=== PATIENT | male | born 1940 | race Caucasian/White ===

== ENCOUNTER → 2018-06-17 10:59 | Outpatient (CLI) | payer MEDICARE, OTHER, SELFPAY ==
[2018-06-17 11:52] LABS: Alanine Aminotransferase 37 IU/L (21-72); Albumin 4.1 g/dL (3.5-5.0); Albumin Globulin Ratio 1.5 (1.0-2.8); Alkaline Phosphatase 81 U/L (38-126); Aspartate Aminotransferase 36 IU/L (17-59); Bilirubin Total 0.8 mg/dL (0.2-1.3); Blood Urea Nitrogen 27 mg/dL (9-20); Calcium 9.3 mg/dL (8.4-10.2); Carbon Dioxide 29 mmol/L (22-32); Chloride 103 mmol/L (98-107); Cholesterol 161 mg/dL (140-199); Estimated Glomerular Filt Rate > 60.0 mL/min (>60); Globulin 2.7 g/dL (1.7-4.1); Glucose 104 mg/dL (80-110); HDL Cholesterol 32 mg/dL (40-60); HEMOLYSIS < 15 (0-50); LDL Cholesterol Calculated 102 mg/dL (<100); Potassium 4.8 mmol/L (3.4-5.1); Sodium 140 mmol/L (137-145); Total Protein 6.8 g/dL (6.3-8.2); Triglycerides 137 mg/dL (35-150)
== END ==
PROVIDERS: PCP Student in an Organized Health Care Education/Training Program; Visit Provider Student in an Organized Health Care Education/Training Program
DX: I10 Essential (primary) hypertension (principal); Z13.220 Encounter for screening for lipoid disorders
CPT/HCPCS: 36415; 80053; 80061

== ENCOUNTER → 2025-03-23 08:32 | Outpatient (CLI) | payer MEDICARE, SELFPAY | LOC: ECHO 08:34 | PROVIDERS: PCP Family Medicine; Referring Provider Family Medicine; Visit Provider Internal Medicine Cardiovascular Disease | DX: I08.3 Combined rheumatic disorders of mitral, aortic and tricuspid valves (principal); I48.19 Other persistent atrial fibrillation; I77.810 Thoracic aortic ectasia; I77.89 Other specified disorders of arteries and arterioles | CPT/HCPCS: 93306 ==

== ENCOUNTER 2025-04-05 10:53 | Emergency (ER) | payer MEDICARE, SELFPAY ==
[2025-04-05] VITALS (46 sets, daily range): BP systolic 124–252; BP diastolic 58–131; PULSE 51–96; RESP 10–35; TEMP 36.6; O2SAT 92–98; BMI 28.8
[2025-04-05] MEDS: ONDANSETRON 4 MG ODT SL (11:54)
[2025-04-05] MEDS: TRANEXAMIC ACID 1,000 MG VIAL 1000 MG TOP (12:03)
--- NOTE | 2025-04-05 12:21 | PC.NURSE ---
Provider Hugo Braden made aware of patient's blood pressure. No new orders at this time.
--- NOTE | 2025-04-05 12:37 | EKG_ITS ---
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
--- NOTE | 2025-04-05 12:44 | ED_ITS ---
HPI - Epistaxis <Hugo Braden PA-C - Last Filed: 04/05/25 12:49> General Chief complaint: Nasal Problem Stated complaint: Nose bleed, this morning , on blood thinners Time Seen by Provider: 04/05/25 11:18 Source: patient Mode of arrival: Ambulatory History of Present Illness HPI Narrative: 84-year-old male with past medical history hypertension, hyperlipidemia, atrial fibrillation, on Xarelto presents to the ED with 1 day of epistaxis from the right nare. Patient has frequent nosebleeds during the rudolph, however they spontaneously stop quickly. The nosebleed started this morning spontaneously. Patient denies fever, chills, chest pain, shortness of breath, nausea, vomiting, abdominal pain, lightheadedness, dizziness, syncope. Patient used 2 sprays of Afrin this morning without relief. Patient is accompanied by his daughter. Patient is followed by Dr. Clemente from cardiology for the AFib. Patient had an echo done on 03/23/2025 which shows a normal left ventricular size with mildly reduced systolic function of 45-50%. Mildly enlarged right ventricle with mildly reduced function. The left atrium is severely dilated. There is [id number] mitral regurgitation. The ascending aorta is moderately enlarged at 4.8 cm. No prior echo available for comparison. Related Data Previous Rx's ?Medication ?Instructions ?Recorded rivaroxaban 20 mg tablet 20 mg PO QPM #90 tabs losartan 25 mg tablet 25 mg PO DAILY #30 tabs 03/19 01/10 Allergies Allergy/AdvReac Type Severity Reaction Status Date / Time No Known Drug Allergies Allergy Verified 10/19/24 07:51 Review of Systems <Nagi Hanley MD - Last Filed: 04/05/25 16:05> Review of Systems ROS Unobtainable: All systems reviewed & are unremarkable except as noted in HPI and below Patient History <Hugo Braden PA-C - Last Filed: 04/05/25 12:49> Medical History (Updated 04/05/25 @ 16:01 by Nagi Hanley MD) Atrial fibrillation Hyperlipidemia Hypertension Family History (Updated 11/21/24 @ 18:22 by Libertad Jones) Father History of heart disease Mother Hyperlipidemia Brother Cancer Social History Smoking Status: Never smoker Smoking Status: Never smoker Exam <Hugo Braden PA-C - Last Filed: 04/05/25 12:49> Initial Vital Signs Initial Vital Signs: Vital Signs Pulse Rate 67 04/05/25 10:57 Pulse Oximetry 98 04/05/25 10:57 <Nagi Hanley MD - Last Filed: 04/05/25 16:05> Initial Vital Signs Initial Vital Signs: Vital Signs Pulse Rate 67 04/05/25 10:57 Pulse Oximetry 98 04/05/25 10:57 Const General: cooperative, healthy appearing, comfortable, well developed and well hydrated Nutritional Appearance: average body habitus HENMT HENMT Other: Bleeding from right nares and slight dripping down the oropharynx Eyes General: Yes appearance normal, both eyes and all related structures Eyelids: eyelids normal Sclera: sclerae normal Pupils: PERRL Neck Neck: normal visual inspection Resp Effort & Inspection: normal respiratory effort and able to speak in complete sentences Cardio Other: Patient with irregularly irregular heartbeat, very mild pitting edema to bilateral lower extremities GI Inspection: normal to inspection and non-distended General: bimanual renal exam normal bilaterally Back/Spine/Pelvis Back: normal to inspection Skin General: no rashes or lesions noted Neuro General: patient alert, patient awake, patient oriented x3, gait normal, moves all extremities, normal light touch, pain and propioception, no focal motor deficits and CN's II-XI intact bilaterally Cognition: normal cognition Speech: speech normal Gait: normal gait Motor: muscle tone normal throughout Sensory Exam: no sensory deficits noted Extrem General: normal to inspection Psych Appearance: grossly normal Mental Status: mental status grossly normal Speech and Movement: speech and movement normal Mood: congruent mood Attitude: cooperative Thought Process: normal Thought Content: normal Judgment: judgment good Procedures <Nagi Hanley MD - Last Filed: 04/05/25 16:05> Misc Procedure Additional Comments: 7.5 rhino rocket coated w/ TXA inserted into the right nare with successful cessation of blood flow. Course <Hugo Braden PA-C - Last Filed: 04/05/25 12:49> Orders Ordered: ED Orders 04/05/25 12:41 CBC Auto Diff [Complete Blood Count AUTO DIFF] Stat CMP [Comprehensive Metabolic Panel] Stat PT [Prothrombin Time INR] Stat PTT [PTT Partial Thromboplastin [place]] Stat 04/05/25 12:56 EKG-12 Lead Stat Discontinued Medications Hydralazine HCl (Hydralazine 20 Mg/Ml Vial) 10 mg IV NOW ONE Stop: 04/05/25 13:20 Last Admin: 04/05/25 13:23 Dose: 10 mg Documented By: GISSEL Losartan Potassium (Losartan 25 Mg Tablet) 25 mg PO NOW ONE Stop: 04/05/25 14:53 Last Admin: 04/05/25 14:57 Dose: Not Given Documented By: PRERNA Morphine Sulfate (Morphine 4 Mg/Ml Inj) 4 mg IV NOW ONE Stop: 04/05/25 12:35 Last Admin: 04/05/25 12:45 Dose: 4 mg Documented By: GISSEL Ondansetron HCl (Ondansetron 4 Mg Odt) 4 mg SL NOW ONE Stop: 04/05/25 11:47 Last Admin: 04/05/25 11:54 Dose: 4 mg Documented By: GISSEL Tranexamic Acid (Tranexamic Acid 1,000 Mg Vial) 1,000 mg TOP NOW ONE Stop: 04/05/25 11:43 Last Admin: 04/05/25 12:03 Dose: 1,000 mg Documented By: GISSEL Vital Signs Vital signs: Vital Signs - 8 hr 04/05/25 10:57 04/05/25 11:00 04/05/25 11:00 Temperature 97.8 F Pulse Rate 67 60 68 Respiratory Rate 16 Blood Pressure 193/96 H Pulse Oximetry 98 98 98 Oxygen Delivery Method Room Air 04/05/25 11:03 04/05/25 11:03 04/05/25 11:23 Temperature Pulse Rate 68 69 Respiratory Rate Blood Pressure 193/96 H Pulse Oximetry 97 95 Oxygen Delivery Method Room Air 04/05/25 11:30 04/05/25 11:31 04/05/25 11:31 Temperature Pulse Rate 77 71 Respiratory Rate Blood Pressure 183/86 H Pulse Oximetry 97 96 Oxygen Delivery Method Room Air 04/05/25 11:46 04/05/25 11:46 04/05/25 12:00 Temperature Pulse Rate 66 58 L Respiratory Rate Blood Pressure 195/99 H Pulse Oximetry 97 98 Oxygen Delivery Method 04/05/25 12:01 04/05/25 12:01 04/05/25 12:07 Temperature Pulse Rate 67 69 Respiratory Rate Blood Pressure 179/131 H Pulse Oximetry 95 97 Oxygen Delivery Method 04/05/25 12:07 04/05/25 12:16 04/05/25 12:16 Temperature Pulse Rate 66 Respiratory Rate Blood Pressure 178/88 H 247/114 H Pulse Oximetry 98 Oxygen Delivery Method 04/05/25 12:24 04/05/25 12:24 04/05/25 12:30 Temperature Pulse Rate 90 51 L Respiratory Rate Blood Pressure 252/129 H Pulse Oximetry 96 98 Oxygen Delivery Method 04/05/25 12:30 04/05/25 12:46 04/05/25 12:46 Temperature Pulse Rate 88 Respiratory Rate 22 Blood Pressure 235/123 H 233/105 H Pulse Oximetry 98 Oxygen Delivery Method 04/05/25 12:55 04/05/25 12:55 04/05/25 12:57 Temperature Pulse Rate 88 81 Respiratory Rate 29 H 19 Blood Pressure 237/112 H Pulse Oximetry 97 95 Oxygen Delivery Method 04/05/25 12:57 04/05/25 12:59 04/05/25 12:59 Temperature Pulse Rate 86 Respiratory Rate 16 Blood Pressure 234/107 H 243/110 H Pulse Oximetry 94 Oxygen Delivery Method 04/05/25 13:00 04/05/25 13:01 04/05/25 13:01 Temperature Pulse Rate 84 84 Respiratory Rate 24 22 Blood Pressure 228/100 H Pulse Oximetry 96 96 Oxygen Delivery Method 04/05/25 13:05 04/05/25 13:05 04/05/25 13:10 Temperature Pulse Rate 80 Respiratory Rate 22 Blood Pressure 225/105 H 225/122 H Pulse Oximetry 96 Oxygen Delivery Method 04/05/25 13:10 04/05/25 13:15 04/05/25 13:15 Temperature Pulse Rate 91 H 83 Respiratory Rate 22 25 H Blood Pressure 233/122 H Pulse Oximetry 96 97 Oxygen Delivery Method 04/05/25 13:20 04/05/25 13:20 04/05/25 13:23 Temperature Pulse Rate 84 76 Respiratory Rate 27 H Blood Pressure 235/107 H 235/107 H Pulse Oximetry 96 Oxygen Delivery Method 04/05/25 13:25 04/05/25 13:25 04/05/25 13:30 Temperature Pulse Rate 83 85 Respiratory Rate 10 L 24 Blood Pressure 211/100 H Pulse Oximetry 92 95 Oxygen Delivery Method 04/05/25 13:31 04/05/25 13:31 04/05/25 13:35 Temperature Pulse Rate 82 Respiratory Rate 35 H Blood Pressure 199/110 H 197/86 H Pulse Oximetry 96 Oxygen Delivery Method 04/05/25 13:35 04/05/25 13:40 04/05/25 13:40 Temperature Pulse Rate 83 78 Respiratory Rate 13 Blood Pressure 179/79 H Pulse Oximetry 94 95 Oxygen Delivery Method 04/05/25 13:45 04/05/25 13:45 04/05/25 13:50 Temperature Pulse Rate 79 79 Respiratory Rate Blood Pressure 168/73 H Pulse Oximetry 94 92 Oxygen Delivery Method 04/05/25 13:50 04/05/25 13:51 04/05/25 13:55 Temperature Pulse Rate 78 75 Respiratory Rate Blood Pressure 181/77 H 181/77 H Pulse Oximetry 95 Oxygen Delivery Method 04/05/25 13:55 04/05/25 13:59 04/05/25 13:59 Temperature Pulse Rate 81 Respiratory Rate Blood Pressure 124/58 L 164/74 H Pulse Oximetry 94 Oxygen Delivery Method 04/05/25 14:00 04/05/25 14:00 04/05/25 14:05 Temperature Pulse Rate 79 71 Respiratory Rate Blood Pressure 168/76 H Pulse Oximetry 94 94 Oxygen Delivery Method 04/05/25 14:05 04/05/25 14:10 04/05/25 14:10 Temperature Pulse Rate 74 Respiratory Rate Blood Pressure 154/67 H 175/75 H Pulse Oximetry 93 Oxygen Delivery Method 04/05/25 14:15 04/05/25 14:15 04/05/25 14:20 Temperature Pulse Rate 79 73 Respiratory Rate Blood Pressure 166/87 H Pulse Oximetry 94 95 Oxygen Delivery Method 04/05/25 14:20 04/05/25 14:25 04/05/25 14:25 Temperature Pulse Rate 77 Respiratory Rate Blood Pressure 158/71 H 150/70 H Pulse Oximetry 95 Oxygen Delivery Method 04/05/25 14:30 04/05/25 14:30 04/05/25 14:35 Temperature Pulse Rate 75 Respiratory Rate Blood Pressure 149/68 H 162/74 H Pulse Oximetry 95 Oxygen Delivery Method 04/05/25 14:35 04/05/25 14:40 04/05/25 14:40 Temperature Pulse Rate 75 69 Respiratory Rate Blood Pressure 171/73 H Pulse Oximetry 93 93 Oxygen Delivery Method 04/05/25 14:45 04/05/25 14:45 04/05/25 14:50 Temperature Pulse Rate 79 Respiratory Rate Blood Pressure 177/77 H 158/77 H Pulse Oximetry 95 Oxygen Delivery Method 04/05/25 14:50 Temperature Pulse Rate 70 Respiratory Rate 16 Blood Pressure Pulse Oximetry 94 Oxygen Delivery Method Room Air <Nagi Hanley MD - Last Filed: 04/05/25 16:05> Course Course Narrative: Pt presents with nosebleed. Has known history hypertension but has been resistant to taking medications. Spoke to avionics supervisor Dr. Clemente who confirmed that his EKG is consistent with AFib with PVCs and ventricular bigeminy. No acute concern for emergent cardiac condition at this time. Recommends losartan 25. Does not recommend Lasix at this time given patient has an appropriate EF as noted above. Patient has had several epistaxis episodes on Xarelto however this one is slightly more prolonged. No significant blood loss noted on CBC Chest x-ray for consideration of pneumonia, pneumothorax, or congestive heart failure. However, deferred due to reassuring history and physical EKG, troponin in consideration of arrhythmia, Acute Coronary Syndrome, Acute Myocardial Infarction. However, deferred due to reassuring history and physical Check labs due to consideration of anemia, electrolyte abnormalities, including hypokalemia, hyperkalemia, hyponatremia, hypernatremia, hyperglycemia, hypoglycemia. No CT chest indicated as I considered but do not clinically suspect aortic dissection/pulmonary embolism. Orders Ordered: ED Orders 04/05/25 12:41 CBC Auto Diff [Complete Blood Count AUTO DIFF] Stat CMP [Comprehensive Metabolic Panel] Stat PT [Prothrombin Time INR] Stat PTT [PTT Partial Thromboplastin [place]] Stat 04/05/25 12:56 EKG-12 Lead Stat Discontinued Medications Hydralazine HCl (Hydralazine 20 Mg/Ml Vial) 10 mg IV NOW ONE Stop: 04/05/25 13:20 Last Admin: 04/05/25 13:23 Dose: 10 mg Documented By: BZ Losartan Potassium (Losartan 25 Mg Tablet) 25 mg PO NOW ONE Stop: 04/05/25 14:53 Last Admin: 04/05/25 14:57 Dose: Not Given Documented By: SB Morphine Sulfate (Morphine 4 Mg/Ml Inj) 4 mg IV NOW ONE Stop: 04/05/25 12:35 Last Admin: 04/05/25 12:45 Dose: 4 mg Documented By: BZ Ondansetron HCl (Ondansetron 4 Mg Odt) 4 mg SL NOW ONE Stop: 04/05/25 11:47 Last Admin: 04/05/25 11:54 Dose: 4 mg Documented By: GISSEL Tranexamic Acid (Tranexamic Acid 1,000 Mg Vial) 1,000 mg TOP NOW ONE Stop: 04/05/25 11:43 Last Admin: 04/05/25 12:03 Dose: 1,000 mg Documented By: GISSEL Vital Signs Vital signs: Vital Signs - 8 hr 04/05/25 10:57 04/05/25 11:00 04/05/25 11:00 Temperature 97.8 F Pulse Rate 67 60 68 Respiratory Rate 16 Blood Pressure 193/96 H Pulse Oximetry 98 98 98 Oxygen Delivery Method Room Air 04/05/25 11:03 04/05/25 11:03 04/05/25 11:23 Temperature Pulse Rate 68 69 Respiratory Rate Blood Pressure 193/96 H Pulse Oximetry 97 95 Oxygen Delivery Method Room Air 04/05/25 11:30 04/05/25 11:31 04/05/25 11:31 Temperature Pulse Rate 77 71 Respiratory Rate Blood Pressure 183/86 H Pulse Oximetry 97 96 Oxygen Delivery Method Room Air 04/05/25 11:46 04/05/25 11:46 04/05/25 12:00 Temperature Pulse Rate 66 58 L Respiratory Rate Blood Pressure 195/99 H Pulse Oximetry 97 98 Oxygen Delivery Method 04/05/25 12:01 04/05/25 12:01 04/05/25 12:07 Temperature Pulse Rate 67 69 Respiratory Rate Blood Pressure 179/131 H Pulse Oximetry 95 97 Oxygen Delivery Method 04/05/25 12:07 04/05/25 12:16 04/05/25 12:16 Temperature Pulse Rate 66 Respiratory Rate Blood Pressure 178/88 H 247/114 H Pulse Oximetry 98 Oxygen Delivery Method 04/05/25 12:24 04/05/25 12:24 04/05/25 12:30 Temperature Pulse Rate 90 51 L Respiratory Rate Blood Pressure 252/129 H Pulse Oximetry 96 98 Oxygen Delivery Method 04/05/25 12:30 04/05/25 12:46 04/05/25 12:46 Temperature Pulse Rate 88 Respiratory Rate 22 Blood Pressure 235/123 H 233/105 H Pulse Oximetry 98 Oxygen Delivery Method 04/05/25 12:55 04/05/25 12:55 04/05/25 12:57 Temperature Pulse Rate 88 81 Respiratory Rate 29 H 19 Blood Pressure 237/112 H Pulse Oximetry 97 95 Oxygen Delivery Method 04/05/25 12:57 04/05/25 12:59 04/05/25 12:59 Temperature Pulse Rate 86 Respiratory Rate 16 Blood Pressure 234/107 H 243/110 H Pulse Oximetry 94 Oxygen Delivery Method 04/05/25 13:00 04/05/25 13:01 04/05/25 13:01 Temperature Pulse Rate 84 84 Respiratory Rate 24 22 Blood Pressure 228/100 H Pulse Oximetry 96 96 Oxygen Delivery Method 04/05/25 13:05 04/05/25 13:05 04/05/25 13:10 Temperature Pulse Rate 80 Respiratory Rate 22 Blood Pressure 225/105 H 225/122 H Pulse Oximetry 96 Oxygen Delivery Method 04/05/25 13:10 04/05/25 13:15 04/05/25 13:15 Temperature Pulse Rate 91 H 83 Respiratory Rate 22 25 H Blood Pressure 233/122 H Pulse Oximetry 96 97 Oxygen Delivery Method 04/05/25 13:20 04/05/25 13:20 04/05/25 13:23 Temperature Pulse Rate 84 76 Respiratory Rate 27 H Blood Pressure 235/107 H 235/107 H Pulse Oximetry 96 Oxygen Delivery Method 04/05/25 13:25 04/05/25 13:25 04/05/25 13:30 Temperature Pulse Rate 83 85 Respiratory Rate 10 L 24 Blood Pressure 211/100 H Pulse Oximetry 92 95 Oxygen Delivery Method 04/05/25 13:31 04/05/25 13:31 04/05/25 13:35 Temperature Pulse Rate 82 Respiratory Rate 35 H Blood Pressure 199/110 H 197/86 H Pulse Oximetry 96 Oxygen Delivery Method 04/05/25 13:35 04/05/25 13:40 04/05/25 13:40 Temperature Pulse Rate 83 78 Respiratory Rate 13 Blood Pressure 179/79 H Pulse Oximetry 94 95 Oxygen Delivery Method 04/05/25 13:45 04/05/25 13:45 04/05/25 13:50 Temperature Pulse Rate 79 79 Respiratory Rate Blood Pressure 168/73 H Pulse Oximetry 94 92 Oxygen Delivery Method 04/05/25 13:50 04/05/25 13:51 04/05/25 13:55 Temperature Pulse Rate 78 75 Respiratory Rate Blood Pressure 181/77 H 181/77 H Pulse Oximetry 95 Oxygen Delivery Method 04/05/25 13:55 04/05/25 13:59 04/05/25 13:59 Temperature Pulse Rate 81 Respiratory Rate Blood Pressure 124/58 L 164/74 H Pulse Oximetry 94 Oxygen Delivery Method 04/05/25 14:00 04/05/25 14:00 04/05/25 14:05 Temperature Pulse Rate 79 71 Respiratory Rate Blood Pressure 168/76 H Pulse Oximetry 94 94 Oxygen Delivery Method 04/05/25 14:05 04/05/25 14:10 04/05/25 14:10 Temperature Pulse Rate 74 Respiratory Rate Blood Pressure 154/67 H 175/75 H Pulse Oximetry 93 Oxygen Delivery Method 04/05/25 14:15 04/05/25 14:15 04/05/25 14:20 Temperature Pulse Rate 79 73 Respiratory Rate Blood Pressure 166/87 H Pulse Oximetry 94 95 Oxygen Delivery Method 04/05/25 14:20 04/05/25 14:25 04/05/25 14:25 Temperature Pulse Rate 77 Respiratory Rate Blood Pressure 158/71 H 150/70 H Pulse Oximetry 95 Oxygen Delivery Method 04/05/25 14:30 04/05/25 14:30 04/05/25 14:35 Temperature Pulse Rate 75 Respiratory Rate Blood Pressure 149/68 H 162/74 H Pulse Oximetry 95 Oxygen Delivery Method 04/05/25 14:35 04/05/25 14:40 04/05/25 14:40 Temperature Pulse Rate 75 69 Respiratory Rate Blood Pressure 171/73 H Pulse Oximetry 93 93 Oxygen Delivery Method 04/05/25 14:45 04/05/25 14:45 04/05/25 14:50 Temperature Pulse Rate 79 Respiratory Rate Blood Pressure 177/77 H 158/77 H Pulse Oximetry 95 Oxygen Delivery Method 04/05/25 14:50 Temperature Pulse Rate 70 Respiratory Rate 16 Blood Pressure Pulse Oximetry 94 Oxygen Delivery Method Room Air MDM - Epistaxis <Hugo Braden PA-C - Last Filed: 04/05/25 12:49> Lab Data 04/05/25 12:41 04/05/25 12:41 Labs: Lab Results 04/05/25 04/05/25 04/05/25 Range/Units 12:41 12:41 12:41 WBC 8.5 (4.5-11.0) X10^3/uL RBC 5.15 (4.5-5.9) X10^6/uL Hgb 16.4 (13.5-17.5) g/dL Hct 47.3 (41-53) % MCV 91.8 (80-100) fL MCH 31.9 (26-34) PG MCHC 34.7 (30-36) % RDW 13.9 (11.6-14.8) % Plt Count 341 (150-400) X10^3/uL Neut % (Auto) 65.6 (50-75) % Lymph % (Auto) 23.2 L (25-40) % [place] % (Auto) 9.7 (3-14) % Eos % (Auto) 1.2 L (2-4) % Baso % (Auto) 0.3 (0-2) % Neut # (Auto) 5600 (6207-6496) /uL Lymph # (Auto) 2000 (2796-0069) /uL [place] # (Auto) 800 (0-900) /uL Eos # (Auto) 100 (0-450) /uL Baso # (Auto) 0 (0-100) /uL PT 17.8 H Cancelled (9.4-12.5) SECONDS INR 1.6 H Cancelled (0.9-1.3) APTT 38 H (25.1-36.5) SECONDS Sodium 138 (137-145) mmol/L Potassium 4.4 (3.4-5.1) mmol/L Chloride 106 (98-107) mmol/L Carbon Dioxide 23 (22-32) mmol/L BUN 30 H (9-20) mg/dL Creatinine 1.27 H (0.66-1.25) mg/dL Estimated GFR 55 L (>60) mL/min BUN/Creatinine Ratio 23.6 H (6-22) Glucose 125 H (70-99) mg/dL Calcium 9.3 (8.4-10.2) mg/dL Total Bilirubin 0.9 (0.2-1.3) mg/dL AST 32 (17-59) IU/L ALT 19 (<50) IU/L Alkaline Phosphatase 113 (38-126) U/L Total Protein 7.8 (6.3-8.2) g/dL Albumin 4.3 (3.5-5.0) g/dL Globulin 3.5 (1.7-4.1) g/dL Albumin/Globulin Ratio 1.2 (1.0-2.8) MDM Narrative Medical decision making narrative: 84-year-old male with past medical history hypertension, hyperlipidemia, atrial fibrillation, on Xarelto presents to the ED with 1 day of epistaxis from the right nare. <Nagi Hanley MD - Last Filed: 04/05/25 16:05> Lab Data Labs: Lab Results 04/05/25 04/05/25 04/05/25 Range/Units 12:41 12:41 12:41 WBC 8.5 (4.5-11.0) X10^3/uL RBC 5.15 (4.5-5.9) X10^6/uL Hgb 16.4 (13.5-17.5) g/dL Hct 47.3 (41-53) % MCV 91.8 (80-100) fL MCH 31.9 (26-34) PG MCHC 34.7 (30-36) % RDW 13.9 (11.6-14.8) % Plt Count 341 (150-400) X10^3/uL Neut % (Auto) 65.6 (50-75) % Lymph % (Auto) 23.2 L (25-40) % [place] % (Auto) 9.7 (3-14) % Eos % (Auto) 1.2 L (2-4) % Baso % (Auto) 0.3 (0-2) % Neut # (Auto) 5600 (2816-7541) /uL Lymph # (Auto) 2000 (3253-2618) /uL [place] # (Auto) 800 (0-900) /uL Eos # (Auto) 100 (0-450) /uL Baso # (Auto) 0 (0-100) /uL PT 17.8 H Cancelled (9.4-12.5) SECONDS INR 1.6 H Cancelled (0.9-1.3) APTT 38 H (25.1-36.5) SECONDS Sodium 138 (137-145) mmol/L Potassium 4.4 (3.4-5.1) mmol/L Chloride 106 (98-107) mmol/L Carbon Dioxide 23 (22-32) mmol/L BUN 30 H (9-20) mg/dL Creatinine 1.27 H (0.66-1.25) mg/dL Estimated GFR 55 L (>60) mL/min BUN/Creatinine Ratio 23.6 H (6-22) Glucose 125 H (70-99) mg/dL Calcium 9.3 (8.4-10.2) mg/dL Total Bilirubin 0.9 (0.2-1.3) mg/dL AST 32 (17-59) IU/L ALT 19 (<50) IU/L Alkaline Phosphatase 113 (38-126) U/L Total Protein 7.8 (6.3-8.2) g/dL Albumin 4.3 (3.5-5.0) g/dL Globulin 3.5 (1.7-4.1) g/dL Albumin/Globulin Ratio 1.2 (1.0-2.8) ECG Data Interpretation: Patient with AFib at 99, frequent ectopy noted with PVCs and intermittent ventricular bigeminy. No ST segment elevations noted. Discharge Plan Departure Patient Disposition: Home Clinical Impression: Hypertensive urgency, Epistaxis Instructions: DI for Nosebleed Activity Restrictions/Additional Instructions: Return to the emergency department for any pus drainage, fever, redness at the site, or any other concern. Please have a qualified clinician remove the rhino rocket in 48 hrs. Please return to ED if you have chest pain, shortness of breath, dizziness, nausea, passing out, or any other concern. Prescriptions: New losartan 25 mg tablet 25 mg PO DAILY Qty: 30 0RF Rx Instructions: While taking this medication please record your blood pressure each day in the morning when you are relaxed after you wake up to show to your avionics supervisor that your next follow-up appointment. No Action rivaroxaban 20 mg tablet 20 mg PO QPM Qty: 90 2RF Referrals: Tom Edwards MD [Primary Care Provider, Family Practice] Stand Alone Forms: Patient Portal/API
[2025-04-05] MEDS: MORPHINE 4 MG/ML INJ IV (12:45)
[2025-04-05 12:50] LABS: Add Manual Diff / Slide Review NO; Hematocrit 47.3 % (41-53); Hemoglobin 16.4 g/dL (13.5-17.5); Lymphocytes Absolute Auto 2000 /uL (1100-4500); Mean Corpuscular HGB Conc 34.7 % (30-36); Mean Corpuscular Hemoglobin 31.9 PG (26-34); Mean Corpuscular Volume 91.8 fL (80-100); Platelet Count 341 X10^3/uL (150-400)
--- NOTE | 2025-04-05 12:55 | PC.NURSE ---
hospice care consultant Ana checks on patient. She reports noticing a low heart rate and place patient on cardiac monitoring. Patient then shows an unspecified arrhythmia. Provider Hugo Braden and provider Leslie made aware. Stat EKG performed. Patient alert, oriented and reports some discomfort with rhino rocket. Call light within reach. Encouraged to use for needs.
--- NOTE | 2025-04-05 12:56 | EKG_ITS ---
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
[2025-04-05 12:59] LABS: INR 1.6 (0.9-1.3); Prothrombin Time 17.8 SECONDS (9.4-12.5)
[2025-04-05 13:01] LABS: PTT Partial Thromboplastin Tim 38 SECONDS (25.1-36.5)
[2025-04-05 13:03] LABS: Alanine Aminotransferase 19 IU/L (<50); Albumin 4.3 g/dL (3.5-5.0); Albumin Globulin Ratio 1.2 (1.0-2.8); Alkaline Phosphatase 113 U/L (38-126); Blood Urea Nitrogen 30 mg/dL (9-20); Calcium 9.3 mg/dL (8.4-10.2); Carbon Dioxide 23 mmol/L (22-32); Chloride 106 mmol/L (98-107); Estimated Glomerular Filt Rate 55 mL/min (>60); Globulin 3.5 g/dL (1.7-4.1); Glucose 125 mg/dL (70-99); HEMOLYSIS < 15 (0-50); Potassium 4.4 mmol/L (3.4-5.1); Sodium 138 mmol/L (137-145); Total Protein 7.8 g/dL (6.3-8.2)
--- NOTE | 2025-04-05 13:11 | PC.NURSE ---
Provider Dayan assessing patient at 1240, requesting blood pressures q5 min. Provider aware of patient's bp and will address.
[2025-04-05] MEDS: hydrALAZINE 20 MG/ML VIAL 10 MG IV (13:23)
--- NOTE | 2025-04-05 15:29 | PC.NURSE ---
Patient's right nostril no longer bleeding after rhino rocket in place. BP is 160/70 @ 1530.
== END 2025-04-05 16:40 | disposition home or self-care (01) ==
PROVIDERS: Student in an Organized Health Care Education/Training Program; Emergency Provider Emergency Medicine; PCP Family Medicine
DX: I16.0 Hypertensive urgency (principal); R04.0 Epistaxis; I48.91 Unspecified atrial fibrillation; I49.3 Ventricular premature depolarization; Z79.01 Long term (current) use of anticoagulants
CPT/HCPCS: 30901; 30903; 36415; 80053; 85025; 85610; 85730; 93005; 93010; 96374; 96375; 99284; J0360; J2272